=== PATIENT | male | born 1985 | race Caucasian/White ===

== ENCOUNTER 2020-01-02 16:48 | Emergency (ER) | payer BC, SELFPAY ==
--- NOTE | ~2020-01-02 | XR_ITS ---
EXAMINATION: XR chest 2V DATE: 01/02/2020 17:25 INDICATION: Cough and wheezing TECHNIQUE: PA and lateral views of the chest are obtained. COMPARISON: 05/09/2011 FINDINGS: The lungs are free of acute opacities. There is no pleural effusion or pneumothorax. The ca rdiomediastinal silhouette is normal. The visualized bones and soft tissues are unremarkable. IMPRESSION: 1. No acute cardiopulmonary abnormality. Reviewed, dictated and finalized at location A.
[2020-01-02 16:58] VITALS: BP 134/77; PULSE 103; RESP 20; TEMP 37; O2SAT 98
--- NOTE | 2020-01-02 17:03 | ED.GENADULT ---
HPI - General Adult General Chief complaint: Upper Respiratory Infection Stated complaint: cough/fatigue/congestion Time Seen by Provider: 01/02/20 17:14 Source: patient Mode of arrival: ambulatory Limitations: no limitations History of Present Illness HPI narrative: 34-year-old male patient presents to the [facility] with complaints of cold symptoms for the past week. Patient states he started off having some sneezing but now has stuffy nose, runny nose, feeling tired. Denies any fevers. Patient states he has had a cough. Denies any chest pain some shortness of breath at times. Patient states he was tested for COVID last week and was negative. Patient states he does actively smoke. Denies taking anything for symptoms. Related Data Allergies Allergy/AdvReac Type Severity Reaction Status Date / Time No Known Allergies Allergy Verified 01/02/20 17:02 Review of Systems Review of Systems: Narrative: CONSTITUTIONAL: Denies fever, chills, or sweats. EYES: Denies visual changes, redness, or discharge. ENT: Positive rhinorrhea, congestion, denies sore throat, or otalgia. CARDIOVASCULAR: Denies chest pain, palpitations, or edema. RESPIRATORY: Positive cough, positive intermittent dyspnea. GASTROINTESTINAL: Denies abdominal pain, nausea, vomiting, or diarrhea. GENITOURINARY: Denies dysuria or hematuria. SKIN: Denies rash or itching. MUSCULOSKELETAL: Denies back pain, joint pain, or myalgia. NEUROLOGIC: Denies headache, numbness, or weakness. Positive fatigue PSYCHIATRIC: Denies anxiety or depression. PMFSH Comments At the time of my signature I agree with nursing past medical history, surgical, social, and family history. There is no relevant family history pertinent to the presenting complaint. Exam Narrative: Exam Narrative: GENERAL: Well-appearing, well-nourished, and in no acute distress. HEAD: Normocephalic, atraumatic. No tenderness noted to frontal maxillary sinuses on palpation EYES: PERRLA and EOMI. ENT: Nares with erythema and edema noted bilaterally, no rhinorrhea or epistaxis. Mucous membranes moist. Posterior pharynx with slight erythema but no tonsil enlargement, no exudates or lesions present. Bilateral TMs are clear no erythema or foreign bodies in the canal. NECK: Supple. No lymphadenopathy CHEST: Very slight inspiratory wheeze noted to the left lower lobe on auscultation. No respiratory distress. Patient able talk in clear complete sentences. HEART: Regular rate and rhythm. No murmur heard. Normal peripheral pulses. ABDOMEN: Soft, nontender, nondistended, normal active bowel sounds. EXTREMITIES: Normal range of motion. No edema. SKIN: Warm, dry, no rash. NEURO: No focal deficits. Alert and oriented x3. Course Reevaluation(s) Reevaluation #1: Reevaluated patient after his DuoNeb was completed. Patient has clear breath sounds noted. Discussed with him that his x-ray is negative for any pneumonia. Discussed with him I think this is most likely viral bronchitis and therefore we will discharge him home with a daily antihistamine, oral steroids and an inhaler for any coughing, chest pain or shortness of breath. Patient verbalized understanding denies any other questions or concerns at this time. Date: 01/02/20 Time: 17:50 Vital Signs Vital signs: Vital Signs Temperature 37.0 C 01/02/20 16:58 Pulse Rate 103 H 01/02/20 16:58 Respiratory Rate 01/02/20 16:58 Blood Pressure 134/77 01/02/20 16:58 Pulse Oximetry 98 01/02/20 16:58 Temperature 37.0 C 01/02/20 16:58 Pulse Rate 103 H 01/02/20 17:25 Respiratory Rate 01/02/20 17:25 Blood Pressure 134/77 01/02/20 16:58 Pulse Oximetry 98 01/02/20 17:25 Vital signs reviewed. The patient has been informed that they may have pre-hypertension or Hypertension based on a BP reading in the department. I recommend that the patient call the primary care provider listed on their discharge instructions or a physician of their choice this w
[2020-01-02 17:25] VITALS: PULSE 103; RESP 20; O2SAT 98
[2020-01-02] MEDS: IPRATROPIUM BR 0.02% INH SOLN 0.5 MG/2.5 ML VIAL INHALATION (17:25)
[2020-01-02] MEDS: ALBUTEROL SULFATE NEB 2.5 MG/3 ML INH INHALATION (17:25)
== END 2020-01-02 17:50 | disposition home or self-care (01) ==
PROVIDERS: Emergency Provider Nurse Practitioner Family
DX: J20.9 Acute bronchitis, unspecified (principal)
CPT/HCPCS: 71046; 94640; 99213; G0463

== ENCOUNTER 2021-11-29 17:07 | Emergency (ER) | payer BC, SELFPAY ==
[2021-11-29 17:10] VITALS: BP 112/69; PULSE 99; RESP 26; TEMP 37.8; O2SAT 99
--- NOTE | 2021-11-29 17:17 | ED.URI ---
HPI - URI/Sore Throat General Chief Complaint: Upper Respiratory Infection Stated Complaint: Headache/Fever Time Seen by Provider: 11/29/21 17:25 Source: patient and RN notes reviewed Mode of arrival: ambulatory Limitations: no limitations History of Present Illness HPI Narrative: 36-year-old male presents with concern for headache, fever, sore throat, nasal congestion and rhinorrhea, fever Reports cough. He reports he has not tried any [id number] medications. He denies any known sick contacts. He denies shortness of breath, nausea, vomiting, diarrhea. MD elicited complaint: cough and sore throat Related Data Home Medications Medication Instructions Recorded Confirmed fluoxetine 40 mg capsule 40 mg PO DAILY 11/29/21 11/29/21 Allergies Allergy/AdvReac Type Severity Reaction Status Date / Time No Known Allergies Allergy Unverified 11/29/21 17:28 Review of Systems Review of Systems: CONSTITUTIONAL: Denies malaise, chills, sweats, or fever. EYES: Denies visual changes, redness, or discharge. ENT: Reports rhinorrhea, congestion, sore throat. Denies sinus pain, otalgia CARDIOVASCULAR: Denies chest pain, palpitations, or edema. RESPIRATORY: Reports cough. Denies dyspnea. GASTROINTESTINAL: Denies abdominal pain, nausea, vomiting, diarrhea SKIN: Denies rash or itching. MUSCULOSKELETAL: Denies myalgia. NEUROLOGIC: Denies headache. All systems reviewed & are unremarkable except as noted in HPI and below PMFSH Comments At time of signature, agree with nursing past medical, surgical, social and family history. There is no relevant family history pertinent to the presenting complaint Exam Narrative: GENERAL: Nontoxic appearing and in no acute distress. HEAD: Normocephalic EYES: PERRLA, conjunctivae clear ENT: Nares clear, clear discharge. Mucous membranes moist. TM pearly zaragoza with dull light reflex bilaterally; no tragal tenderness. Oropharynx not erythematous without lesions. Tonsils not enlarged and without exudate, no drooling, no hoarseness, no trismus, uvula midline. NECK: Supple. No lymphadenopathy CHEST: Clear to auscultation, breath sounds equal. No wheezing, rhonchi, rales, or stridor. No respiratory distress, speaks in full sentences. HEART: Regular rate and rhythm. No murmur heard. SKIN: Warm, dry, no rash. NEURO: Alert and oriented x3. PSYCH: Normal mood and affect Course Course Emergency Course: Patient is aware of diagnosis, understands and agrees to treatment plan. Anticipatory guidance given. Patient agrees to follow-up as directed and is aware of reasons to seek care at the emergency department. Portions of this record may have been created with voice recognition software Level of Care: Express Care Visit Vital Signs Vital signs: Reviewed. MDM - URI/Sore Throat MDM Narrative Medical decision making narrative: Differential diagnosis considered: Curtis virus, strep pharyngitis, allergic rhinitis, upper respiratory tract infection, sinusitis, rhinosinusitis, nasopharyngitis. viral pharyngitis, otitis media, otitis externa, pneumonia, bronchitis, viral cough syndrome, viral syndrome, and influenza. Exam findings show no acute concerns or changes; patient is non-toxic appearing and is in no distress. Patient is appropriate for outpatient treatment and follow-up. Lab Data Attestation: I reviewed the patient's lab results. Critical Care Time Critical Care Time Critical Care Time: No Discharge Plan Discharge Clinical Impression: COVID Patient Disposition: Home, Self-Care Condition: Stable Instructions: How to Recover from COVID-19 at Home (ED) Additional Instructions: Your rapid COVID test is positive. ? Stay home when you are sick, except to get medical care. ? Stay home for 5 days. If you have no symptoms or your symptoms are resolving after 5 days, you can leave your house. Continue to wear a mask around others for 5 additional days. ? If you are self isolating at home
== END 2021-11-29 17:40 | disposition home or self-care (01) ==
PROVIDERS: Emergency Provider Nurse Practitioner
DX: U07.1 COVID-19 (principal); F41.9 Anxiety disorder, unspecified
CPT/HCPCS: 87081; 87426; 87804; 87880; 99213; C9803; G0463

== ENCOUNTER 2022-03-22 10:35 | Emergency (ER) | payer BC, SELFPAY ==
[2022-03-22 10:40] VITALS: BP 148/81; PULSE 85; RESP 16; TEMP 37; O2SAT 97
--- NOTE | 2022-03-22 10:52 | ECG_ITS ---
Measurements Intervals Holman Rate: 86 P: 55 MT: 124 QRS: 75 QRSD: 83 T: 47 QT: 331 QTc: 397 Interpretive Statements SINUS RHYTHM NORMAL ECG NO PREVIOUS ECG AVAILABLE FOR COMPARISON Electronically Signed On 03-22-2022 21:19:41 CDT by Merlin Whitehead D.O.
--- NOTE | 2022-03-22 11:00 | ED.CHESTPAIN ---
HPI - Chest Pain General Chief Complaint: Chest Pain Stated Complaint: pain in chest spreading up Time Seen by Provider: 03/22/22 10:40 Source: patient Mode of arrival: ambulatory Limitations: no limitations History of Present Illness HPI narrative: Mr. Prabhakar is a 36-year-old male patient presenting to the clinic today with complaints of midsternal/right-sided chest pain that is burning and dull that began approximately 1 hour ago. He also reports that is radiating into the right side of his neck. States that he was taking a bath prior to this. He denies any heavy lifting or any working out over the last day or 2. He reports that he is having some shortness of breath but this is more due to the wearing of the mask. Does have a history of anxiety and hyperlipidemia. He is a non-smoker. Related Data Home Medications Medication Instructions Recorded Confirmed fluoxetine 40 mg capsule 40 mg PO DAILY 11/29/21 03/22/22 Allergies Allergy/AdvReac Type Severity Reaction Status Date / Time No Known Allergies Allergy Verified 03/22/22 10:55 Review of Systems Review of Systems: Pertinent positives per HPI. Patient denies any fever, chills, rash, headache, visual changes, dizziness, cough, runny nose, sore throat, palpitations, nausea, vomiting, diarrhea, constipation, abdominal pain, or any urinary issues. PMFSH Comments At the time of my signature, I reviewed and agree with the nursing past medical, surgical, social, and family history. There is no relevant family history pertinent to the patient complaint. Exam Narrative: General: Well-developed, well nourished, in no apparent distress Head: Normocephalic, atraumatic. Cardio: Regular rate and rhythm, s1 and s2 normal, no murmur appreciated. Resp: Clear to auscultation bilaterally, no rhonchi, rales, wheezing or rubs. Extremities: No deformity, no edema, no cyanosis, capillary refill less than 2 seconds, peripheral pulses palpable and strong. Integumentary: [place], warm, and dry, intact without lesion, no rashes. Course Course Emergency Course: Portions of this record may have been created with voice recognition software. Level of Care: Express Care Visit Vital Signs Vital signs: Vital Signs Temperature 37.0 C 03/22/22 10:40 Pulse Rate 85 03/22/22 10:40 Respiratory Rate 16 03/22/22 10:40 Blood Pressure 148/81 H 03/22/22 10:40 Pulse Oximetry 97 03/22/22 10:40 Oxygen Delivery Room Air 03/22/22 10:40 Temperature 37.0 C 03/22/22 10:40 Pulse Rate 85 03/22/22 10:40 Respiratory Rate 16 03/22/22 10:40 Blood Pressure 148/81 H 03/22/22 10:40 Pulse Oximetry 97 03/22/22 10:40 Oxygen Delivery Room Air 03/22/22 10:40 Vital signs reviewed Transfer Transfered to: [facility] Transportation: ALS Transfer rationale: Midsternal chest pain radiating into the right side of his neck. Rule out acute coronary syndrome Accepting physician: Dr. Chaney Transfer comments: Transferred via ALS MDM - Chest Pain MDM Narrative Medical decision making narrative: At the time of visit patient is resting comfortably on the exam table. Patient reports having chest pain midsternal radiating into the right side of his neck a 5 out of 10 currently. Reports the pain is a dull ache/burning. Does have mild shortness of breath with wearing the mask. History of hyperlipidemia and anxiety. Recommend transfer to the ED for further evaluation to rule out acute coronary syndrome. Patient is agreeable to this. EKG was normal sinus rhythm without ectopy in the clinic today. Contacted [facility] emergency room and spoke with Remedios and report was given and Dr. Chaney is the accepting physician. Differential Diagnosis Differential diagnosis: Likely stable angina, unstable angina pectoris, atypical chest pain, st elevation myocardial infarction, costochondritis and chest pain ECG Data EKG #1: Attestation: I personally revie
== END 2022-03-22 11:05 | disposition short-term general hospital (02) ==
PROVIDERS: Emergency Provider Nurse Practitioner Family
DX: R07.9 Chest pain, unspecified (principal); F41.9 Anxiety disorder, unspecified; Z86.16 Personal history of COVID-19
CPT/HCPCS: 93005; 99215; G0463

== ENCOUNTER 2022-06-17 10:36 | Emergency (ER) | payer BC, SELFPAY ==
[2022-06-17 10:42] VITALS: BP 110/68; PULSE 78; RESP 14; TEMP 36.7; O2SAT 100
--- NOTE | 2022-06-17 10:46 | ED.NAVMDI ---
HPI - Nausea/Vomiting/Diarrhea General Chief complaint: Nausea/Vomiting/Diarrhea Stated complaint: diarrhea Time Seen by Provider: 06/17/22 10:52 Source: patient and RN notes reviewed Mode of arrival: ambulatory Limitations: no limitations History of Present Illness HPI Narrative: 36-year-old male presents with concern of for diarrhea for 2 days. Reports symptoms are improving. He denies taking any medications at home for symptoms. He reports he missed work and needs a work note. He denies fever, aches, chills, sweats, upper respiratory symptoms, cough, abdominal pain. MD elicited complaint: diarrhea Related Data Home Medications Medication Instructions Recorded Confirmed fluoxetine 40 mg capsule 40 mg PO DAILY 11/29/21 03/22/22 Allergies Allergy/AdvReac Type Severity Reaction Status Date / Time No Known Allergies Allergy Verified 06/17/22 10:47 Review of Systems Review of Systems: CONSTITUTIONAL: Denies malaise, chills, sweats, or fever. ENT: Denies rhinorrhea, congestion, sinus pain, otalgia or sore throat. CARDIOVASCULAR: Denies chest pain, palpitations, or edema. RESPIRATORY: Denies cough or dyspnea. GASTROINTESTINAL: Denies abdominal pain, nausea, vomiting, bloody, or mucous stools. Reports diarrhea GENITOURINARY: Denies dysuria or hematuria. MUSCULOSKELETAL: Denies myalgia. NEUROLOGIC: Denies headache. All systems reviewed & are unremarkable except as noted in HPI and below PMFSH Comments At time of signature, agree with nursing past medical, surgical, social and family history. There is no relevant family history pertinent to the presenting complaint Exam Narrative: GENERAL: Well-appearing, well-nourished, and in no acute distress. HEAD: Normocephalic, atraumatic. EYES: PERRLA, conjunctivae clear, and EOMI. ENT: Nares clear, turbinates pink, no rhinorrhea or epistaxis. Mucous membranes moist. Oropharynx without edema, erythema, or lesions. Tonsils not enlarged and without exudate. NECK: Supple. No lymphadenopathy CHEST: Speaks in full sentences. No respiratory distress. HEART: Regular rate and rhythm. ABDOMEN: Soft, flat, nondistended, nontender. No guarding, rebound tenderness, or rigidity. No pulsatile masses. Bowel sounds present in all four quadrants. No organomegaly. Negative Escobar?s sign. No periumbilical tenderness. No Supra public tenderness or distension. Good femoral pulses bilaterally. No hernia noted. No scars or surface trauma. SKIN: Warm, dry, no rash. NEURO: Alert and oriented x3. PSYCH: Normal mood and affect Course Course Emergency Course: Patient is aware of diagnosis, understands and agrees to treatment plan. Anticipatory guidance given. Patient agrees to follow-up as directed and is aware of reasons to seek care at the emergency department. Portions of this record may have been created with voice recognition software Level of Care: Express Care Visit Vital Signs Vital signs: Reviewed. MDM - Nausea/Vomiting/Diarrhea MDM Narrative Medical decision making narrative: Exam findings show no acute concerns or changes; patient is non-toxic appearing and is in no distress. Patient is appropriate for outpatient treatment and follow-up. Critical Care Time Critical Care Time Critical Care Time: No Discharge Plan Discharge Clinical Impression: Diarrhea Patient Disposition: Home, Self-Care Condition: Stable Instructions: Acute Diarrhea (ED) Additional Instructions: Stay hydrated. Take small sips of fluid containing electrolytes frequently. You should go to the hospital if you experience persistent nausea and vomiting, diarrhea that does not resolve and does not allow you to tolerate any food or fluids, persistent fevers for greater than 2-3 more days, increasing abdominal pain that persists despite medications, persistent diarrhea, dizziness, syncope (fainting), or for any other concerns. Prescriptions: No Action fluoxetine 40 mg capsule 40 mg PO DAILY
[2022-06-17 10:47] VITALS: BP 110/68; PULSE 78; RESP 14; TEMP 36.7; O2SAT 100
== END 2022-06-17 11:01 | disposition home or self-care (01) ==
PROVIDERS: Emergency Provider Nurse Practitioner
DX: R19.7 Diarrhea, unspecified (principal)
CPT/HCPCS: 99211; G0463

== ENCOUNTER 2022-10-22 10:21 | Emergency (ER) | payer BC, SELFPAY ==
[2022-10-22 10:43] VITALS: BP 116/65; PULSE 86; RESP 16; TEMP 36.6; O2SAT 98
--- NOTE | 2022-10-22 12:07 | ED.URI ---
HPI - URI/Sore Throat General Chief Complaint: Upper Respiratory Infection Stated Complaint: flu symptoms Time Seen by Provider: 10/22/22 12:00 Source: patient, RN notes reviewed and old records reviewed Mode of arrival: ambulatory Limitations: no limitations History of Present Illness HPI Narrative: 36-year-old male who presents to [facility] care with complaints of illness for 2 day history of sore throat,headache, nausea, some abdominal discomfort and feeling tired. Patient reports no vomiting or diarrhea. Patient reports that he has not had any known fevers chills or body aches, has not taken any OTC medications for his symptoms. Patient reports that he has not been COVID vaccinated or had flu shot.Patient reports that he called off work due to illness and needs note to return to work. MD elicited complaint: sore throat and other (abdominal discomfort with nausea) Onset (ago): day(s) (2) Treatments prior to arrival: none Related Data Allergies Allergy/AdvReac Type Severity Reaction Status Date / Time No Known Allergies Allergy Verified 06/17/22 10:47 Review of Systems Review of Systems: CONSTITUTIONAL: Denies malaise, chills, sweats, or fever. states fatigue EYES: Denies visual changes, redness, or discharge. ENT: No reported rhinorrhea, congestion, sinus pain, no otalgia reports sore throat. CARDIOVASCULAR: Denies chest pain, palpitations, or edema. RESPIRATORY: Reports no cough.? Denies dyspnea. GASTROINTESTINAL:Reports some abdominal discomfort and nausea, no vomiting, diarrhea SKIN: Denies rash or itching. MUSCULOSKELETAL: Denies myalgia. NEUROLOGIC:Reports headache. All systems reviewed & are unremarkable except as noted in HPI and below PMFSH Past Medical History Medical History (Updated 10/24/22 @ 09:54 by Ann Montiel NP) Anxiety COVID-19 11/2021 History of dental problems Social History Social History (Updated 10/24/22 @ 09:55 by Ann Montiel NP) Smoking packs per day: 0.5 Smoking cigarettes per day: 10.0 Smoking status: Current every day smoker Tobacco type: cigarettes Alcohol intake: current Alcohol use details: social Substance use type: does not use Gender identity (if verbalized by the patient): Male Comments At time of signature, agree with nursing past medical, surgical, social and family history. There is no relevant family history pertinent to the presenting complaint Exam Narrative: GENERAL: Well-appearing, well-nourished, and in no acute distress. HEAD: Normocephalic EYES: PERRLA, conjunctivae clear ENT: Nares clear, turbinates edematous and erythematous, clear discharge. Mucous membranes moist. TM pearly zaragoza with dull light reflex bilaterally; no tragal tenderness. Oropharynx erythematous without lesions. Tonsils not enlarged and without exudate, no drooling, no hoarseness, no trismus, uvula midline. NECK: Supple. No lymphadenopathy CHEST: Clear to auscultation, breath sounds equal. No wheezing, rhonchi, rales, or stridor. No respiratory distress, speaks in full sentences.no cough noted SAO2 98% on room air HEART: Regular rate and rhythm. No murmur heard. SKIN: Warm, dry, no rash. NEURO: Alert and oriented x3. PSYCH: Normal mood and affect Course Course Emergency Course: Patient is aware of diagnosis, understands and agrees to treatment plan.? Anticipatory guidance given.? Patient agrees to follow-up as directed and is aware of reasons to seek care at the emergency department. Portions of this record may have been created with voice recognition software Level of Care: Express Care Visit Vital Signs Vital signs: Vital Signs Temperature 36.6 C 10/22/22 10:43 Pulse Rate 86 10/22/22 10:43 Respiratory Rate 16 10/22/22 10:43 Blood Pressure 116/65 10/22/22 10:43 Pulse Oximetry 98 10/22/22 10:43 Oxygen Delivery Room Air 10/22/22 10:43 Temperature 36.6 C 10/22/22 10:43 Pulse Rate 86 10/22/22 10:43
== END 2022-10-22 12:43 | disposition home or self-care (01) ==
PROVIDERS: Emergency Provider Registered Nurse
DX: J06.9 Acute upper respiratory infection, unspecified (principal); J02.9 Acute pharyngitis, unspecified; F17.210 Nicotine dependence, cigarettes, uncomplicated
CPT/HCPCS: 87081; 87880; 99213; G0463

== ENCOUNTER 2023-12-09 09:04 | Emergency (ER) | payer BC, SELFPAY ==
[2023-12-09 09:14] VITALS: BP 125/67; PULSE 95; RESP 16; TEMP 36.6; O2SAT 100
--- NOTE | 2023-12-09 09:49 | ED.GENADULT ---
HPI - General Adult General Chief complaint: Upper Respiratory Infection Stated complaint: Cough/Sore Throat/Headache/Body Aches Source: patient Mode of arrival: ambulatory Limitations: no limitations History of Present Illness HPI narrative: Patient presents for evaluation of sick symptoms for the past 5 days. Symptoms include fever, headache, generalized body aches, sore throat, cough, mild shortness of breath secondary to cough and one episide of vomiting. No diarrhea or chest pain. He developed some left lower back pain, particularly present when he takes a deep breath. He describes the pain as sharp, stabbing and rates it as 8/10 in severity. He thinks his pain is related to a pulled muscle. He denies any abdominal pain or urinary symptoms. Related Data Home Medications Medication Instructions Recorded Confirmed sertraline 25 mg tablet mg 12/09/23 Allergies Allergy/AdvReac Type Severity Reaction Status Date / Time No Known Allergies Allergy Verified 06/17/22 10:47 Review of Systems Review of Systems: CONSTITUTIONAL: Reports fever. Denies chills, or sweats. EYES: Denies visual changes, redness, or discharge. ENT: Reports sore throat. Denies rhinorrhea, congestion, or otalgia. CARDIOVASCULAR: Denies chest pain, palpitations, or edema. RESPIRATORY: Reports cough and mild shortness of breath. GASTROINTESTINAL: Reports one episode of vomiting. Denies abdominal or diarrhea. GENITOURINARY: Denies dysuria or hematuria. SKIN: Denies rash or itching. MUSCULOSKELETAL: Reports left lower back pain. Reports generalized body aches. NEUROLOGIC: Reports headache. Denies numbness, dizziness, or weakness. PSYCHIATRIC: Denies anxiety or depression. [facility] Past Medical History Medical History Anxiety COVID-19 11/2021 History of dental problems Surgical History Surgical History No pertinent past surgical history Family History Family History Mother Family history non-contributory Social History Social History Smoking packs per day: 0.5 Smoking cigarettes per day: 10.0 Smoking status: Current every day smoker Tobacco type: e-cigarettes/vaping Alcohol intake: current Alcohol use details: social Substance use type: does not use Gender identity (if verbalized by the patient): Male Exam Narrative: GENERAL: Well-appearing, well-nourished, and in no acute distress. HEAD: Normocephalic, atraumatic. EYES: PERRLA and EOMI. ENT: Nares clear, no rhinorrhea or epistaxis. Mucous membranes moist. Mild bilateral tonsillar enlargement with erythema but no exudate. Uvula is midline. Bilateral TMs pearly zaragoza nonbulging NECK: Supple. No adenopathy or masses. No carotid bruits or JVD CHEST: Cough present on exam. Clear to auscultation. No respiratory distress. No wheezes rales or rhonchi HEART: Regular rate and rhythm. No murmur heard. Normal peripheral pulses. ABDOMEN: Soft, nontender, nondistended, normal active bowel sounds. EXTREMITIES: Normal range of motion. No edema. SKIN: Warm, dry, no rash. NEURO: No focal deficits. Alert and oriented x3. PSYCH: Normal mood and affect. Course Course Level of Care: Express Care Visit Vital Signs Vital signs: Vital Signs Temperature 36.6 C 12/09/23 09:14 Pulse Rate 95 12/09/23 09:14 Respiratory Rate 16 12/09/23 09:14 Blood Pressure 125/67 12/09/23 09:14 Pulse Oximetry 100 12/09/23 09:14 Oxygen Delivery Room Air 12/09/23 09:14 Temperature 36.6 C 12/09/23 09:14 Pulse Rate 95 12/09/23 09:14 Respiratory Rate 16 12/09/23 09:14 Blood Pressure 125/67 12/09/23 09:14 Pulse Oximetry 100 12/09/23 09:14 Oxygen Delivery Room Air 12/09/23 09:14 [facility]
== END 2023-12-09 10:49 | disposition home or self-care (01) ==
PROVIDERS: Emergency Provider Nurse Practitioner
DX: B34.9 Viral infection, unspecified (principal); R10.9 Unspecified abdominal pain; Z20.822 Contact with and (suspected) exposure to COVID-19; F17.290 Nicotine dependence, other tobacco product, uncomplicated; F41.9 Anxiety disorder, unspecified; Z86.16 Personal history of COVID-19
CPT/HCPCS: 81003; 87081; 87426; 87804; 87880; 99213; G0463